=== PATIENT | male | born 1990 | race Caucasian/White ===

== ENCOUNTER 2016-12-08 04:14 | Emergency (ER) | payer OTHER ==
[~2016-12-08] VITALS: Ht 172.7 cm; Wt 87.5 kg
[2016-12-08 04:19] VITALS: Ht 172.7 cm; Wt 87.5 kg
[2016-12-08] MEDS ORDERED: ONDANSETRON 4 MG INJ IV STA (04:34)
[2016-12-08] MEDS ORDERED: KETOROLAC 30 MG INJ IV STA (04:34)
[2016-12-08] MEDS ORDERED: SOD CHLORIDE 0.9% 1,000 ML IV STA (04:34)
--- NOTE | 2016-12-08 05:02 | ERD ---
ER Documentation Chief Complaint Date/Time DATE: 12/08/16 TIME: 05:00 Chief Complaint right flank pain x 10 minutes HPI 25-year-old male otherwise healthy comes emergency department with sudden onset of sharp right-sided flank pain that started about 30 minutes ago. Patient states that it woke him up out of sleep, he states is going to his groin. He has not tried anything for the pain. He denies fever, chills, nausea, vomiting. He denies hematuria. He denies UTI symptoms. ROS All systems reviewed and are negative except as per history of present illness. Medications Home Meds Active Scripts Docusate Sodium* (Colace*) 100 Mg Capsule, 100 MG PO TID, #30 CAP Prov:YAYA CHAPARRO PA-C 12/08/16 Hydrocodone/Acetaminophen ([place] 5-325 Tablet) 1 Each Tablet, 1 TAB PO Q6H Y for PAIN, #15 TAB Prov:YAYA CHAPARRO PA-C 12/08/16 Tamsulosin Hcl* (Flomax*) 0.4 Mg Cap.er.24h, 0.4 MG PO BID, #30 CAP Prov:YAYA CHAPARRO PA-C 12/08/16 Ibuprofen* (Motrin*) 600 Mg Tab, 600 MG PO Q6, #30 TAB Prov:YAYA CHAPARRO PA-C 12/08/16 Allergies Allergies: Coded Allergies: No Known Drug Allergies (Verified Allergy, Unknown, 12/08/16) PMhx/Soc Medical and Surgical Hx: pt denies Medical Hx, pt denies Surgical Hx History of Surgery: No Anesthesia Reaction: No Hx Neurological Disorder: No Hx Respiratory Disorders: No Hx Cardiac Disorders: No Hx Psychiatric Problems: No Hx Miscellaneous Medical Probl: No Hx Alcohol Use: No Hx Substance Use: No Hx Tobacco Use: No Smoking Status: Never smoker Physical Exam Vitals Vital Signs Date Time Temp Pulse Resp B/P Pulse Ox O2 Delivery O2 Flow Rate FiO2 12/08/16 04:19 97.8 94 20 142/83 97 Physical Exam General: Well-developed, well-nourished. The patient appears in no acute distress. HEENT: Head is normocephalic, atraumatic. No scleral icterus. Neck: Supple. Nontender. Lungs: Clear to auscultation. Normal air movement. Heart: Regular rate and rhythm. S1 and S2 are normal. No murmurs, gallops, or rubs. Abdomen: Soft, nontender, nondistended. Bowel sounds are normoactive. No CVA tenderness. Extremities: No clubbing or cyanosis. Normal pulses. Moving extremities x 4. No weakness. Neurologic: Alert and oriented 3. No focal deficits. Skin: Normal turgor. No rash or lesions. Result Diagram: 12/08/16 0455 12/08/16 0455 Results 24 hrs Laboratory Tests Test 12/08/16 04:55 White Blood Count 10.710^3/ul Red Blood Count 4.5710^6/ul Hemoglobin 14.2g/dl Hematocrit 41.1% Mean Corpuscular Volume 89.9fl Mean Corpuscular Hemoglobin 31.1pg Mean Corpuscular Hemoglobin Concent 34.5g/dl Red Cell Distribution Width 12.4% Platelet Count 64782^3/UL Mean Platelet Volume 10.6fl Neutrophils % 45.2% Lymphocytes % 44.5% Monocytes % 8.1% Eosinophils % 1.4% Basophils % 0.3% Nucleated Red Blood Cells % 0.0/100WBC Neutrophils # 4.810^3/ul Lymphocytes # 4.810^3/ul Monocytes # 0.910^3/ul Eosinophils # 0.210^3/ul Basophils # 0.010^3/ul Nucleated Red Blood Cells # 0.010^3/ul Urine Color YELLOW Urine Clarity SLIGHTLY CLOUDY Urine pH 5.0 Urine Specific Brady 1.024 Urine Ketones NEGATIVEmg/dL Urine Nitrite NEGATIVEmg/dL Urine Bilirubin NEGATIVEmg/dL Urine Urobilinogen NEGATIVEmg/dL Urine Leukocyte Esterase NEGATIVELeu/ul Urine Microscopic RBC 1/HPF Urine Microscopic WBC 2/HPF Urine Bacteria FEW/HPF Urine Mucus FEW/HPF Urine Hemoglobin NEGATIVEmg/dL Urine Glucose NEGATIVEmg/dL Urine Total Protein NEGATIVEmg/dl Sodium Level 147mmol/L Potassium Level 3.9mmol/L Chloride Level 104mmol/L Carbon Dioxide Level 28mmol/L Anion Gap 19 Blood Urea Nitrogen 16mg/dl Creatinine 0.98mg/dl Glucose Level 96mg/dl Calcium Level 10.0mg/dl Total Bilirubin 0.3mg/dl Direct Bilirubin 0.00mg/dl Indirect Bilirubin 0.3mg/dl Aspartate Amino Transf (AST/SGOT) 31IU/L Alanine Aminotransferase (ALT/SGPT) 39IU/L Alkaline Phosphatase 89IU/L Total Protein 8.0g/dl Albumin 5.1g/dl Globulin 2.90g/dl Albumin/Globulin Ratio 1.75 Lipase 167U/L Current Medications Medications (Trade) Dose Ordered Sig/Cristiano Route PRN Reason Start Time Stop Time Status Last Admin Dose Admin Sodium Chloride (NS) 1,000 ml @ 1,000 mls/hr Q1H STAT IV 12/08/16 04:34 12/08/16 05:33 DC 12/08/16 04:51 Ondansetron HCl (Zofran Inj) 4 mg ONCE STAT IV 12/08/16 04:34 12/08/16 04:39 DC 12/08/16 04:50 Ketorolac Tromethamine (Toradol) 30 mg ONCE STAT IV 12/08/16 04:34 12/08/16 04:39 DC 12/08/16 04:50 DIAGNOSTIC IMAGING REPORT Patient: ALEXANDRA JON : 1990 Age: 25 Sex: M MR #: [id number] DOS: 12/08/16 0434 Ordering MD: YAYA CHAPARRO PA-C Location: [facility] Room/Bed: PROCEDURE: CT ABDOMEN/PELVIS WITHOUT CONTRAST CLINICAL INDICATION: 25-year-old male with right flank pain. TECHNIQUE: The study was performed utilizing a [employer]pe[employer] VCT 64-slice CT scanner. Direct axial sections were obtained through the abdomen and pelvis without the use of intravenous contrast material. Sagittal and coronal reformations were obtained. One or more of the following dose reduction techniques were utilized: automated exposure control, adjustment of the mA and/ or kV according to patient's size or use of iterative reconstruction technique. The images were reviewed on a PACS workstation. CTD/vol = 13.8 mGy; Total Exam DLP = 841.0 mGy-cm. COMPARISON: None. FINDINGS: The lung bases are unremarkable. There is no evidence for significant pleural effusion. The liver has a normal size and contour without focal areas of abnormal density. No intrahepatic nor extrahepatic biliary ductal dilatation is seen. The gallbladder demonstrates no wall thickening nor pericholecystic fluid. No biliary stones are evident. The pancreas is without areas of abnormal attenuation. The spleen is identified and has a normal size without abnormal density. The adrenal glands are unremarkable. There is mild right-sided hydroureteronephrosis with a punctate 1 mm obstructing calculus at the ureterovesicle junction region. The left kidney is without abnormal density, calculi or obstruction. The urinary bladder contains urine. There is mild retained stool within the ascending and transverse colon without obstruction. The appendix is diminutive and is without abnormal thickening or surrounding inflammatory reaction however there is a small punctate mid appendiceal 2 mm appendicolith. The prostate is not enlarged. There is no significant free fluid. The aortoiliac vessels are without aneurysmal dilatation. The osseous structures are intact. IMPRESSION: 1. Mild right-sided hydroureteronephrosis with a punctate 1 mm right ureterovesicle junction calculus. 2. Mild retained stool without obstruction. 3. Diminutive appendix containing a small 2 mm mid appendiceal appendicolith but without CT evidence for appendicitis. .Mac Perez MD, MD Date Time Electronically viewed and signed by .Mac Perez MD, on 12/08/2016 05:39 .M/ Procedures/MDM ED course: Patient an IV line established, blood and urine were obtained. He was given a fluid bolus of normal saline 1 L and Toradol 30 mg IV, Zofran 4 mg IV. Patient was also given Flomax 0.4 mg by mouth. The patient's abdominal pain was reexamined. Patient was sitting comfortably with improved pain. Patient was not in any distress. Rates his pain 0 out of 10. Medical decision making: This is a 24-year-old male comes a right-sided onset of flank pain that started about 30 minutes, comes in with a 1 mm obstructing kidney stone with hydronephrosis that is mild at the UVJ. No evidence of any septic kidney stones, no renal insufficiency or renal failure. He has normal white count, normal kidney function. CT abdomen and pelvis also showed incidental finding of an appendicolith, without any evidence of appendicitis. She does have mild constipation also seen on the CT scan. Results discussed with patient. He will be given prescriptions for pain medicine as well as for constipation, he was asked to recheck with his primary care doctor, symptoms do not improve that he may see a urologist outpatient. Departure Diagnosis: Primary Impression: Kidney stone Additional Impressions: Constipation Appendicolith Condition: Good YAYA CHAPARRO PA-C Dec 08, 2016 05:02
[2016-12-08 05:05] LABS: ADD SCAN DIFF NO
[2016-12-08 05:07] LABS: BASOPHILS % 0.3 % (0.0-2.0); EOSINOPHILS # 0.2 10^3/ul (0.0-0.5); EOSINOPHILS % 1.4 % (0.0-7.0); HEMATOCRIT 41.1 % (42.0-52.0); HEMOGLOBIN 14.2 g/dl (14.0-18.0); LYMPHOCYTES # 4.8 10^3/ul (0.8-2.9); LYMPHOCYTES % 44.5 % (15.0-51.0); MEAN CORPUSCULAR HEMOGLOBIN 31.1 pg (29.0-33.0); MEAN CORPUSCULAR HGB CONC 34.5 g/dl (32.0-37.0); MEAN CORPUSCULAR VOLUME 89.9 fl (82.0-101.0); MEAN PLATELET VOLUME 10.6 fl (7.4-10.4); MONOCYTE # 0.9 10^3/ul (0.3-0.9); MONOCYTES % 8.1 % (0.0-11.0); NEUTROPHIL # 4.8 10^3/ul (1.6-7.5); NEUTROPHILS % 45.2 % (39.0-77.0); PLATELET COUNT 330 10^3/UL (140-415); RED BLOOD COUNT 4.57 10^6/ul (4.70-6.10); RED CELL DISTRIBUTION WIDTH 12.4 % (11.5-14.5); WHITE BLOOD COUNT 10.7 10^3/ul (4.8-10.8)
[2016-12-08 05:24] LABS: ALBUMIN 5.1 g/dl (3.3-4.9); ALBUMIN/GLOBULIN RATIO 1.75; BILIRUBIN,INDIRECT 0.3 mg/dl (0-1.1); BILIRUBIN,TOTAL 0.3 mg/dl (0.2-1.3); CREATININE 0.98 mg/dl (0.61-1.24); POTASSIUM 3.9 mmol/L (3.5-5.1)
[2016-12-08 05:33] LABS: ADD UMIC NO; UR ASCORBIC ACID 40 mg/dL (NEGATIVE); UR BACTERIA FEW /HPF (NONE SEEN); UR BILIRUBIN (Dip) NEGATIVE (NEGATIVE); UR BLOOD (Dip) NEGATIVE (NEGATIVE); UR CLARITY SLIGHTLY CLOUDY (CLEAR); UR COLOR YELLOW (YELLOW); UR GLUCOSE (Dip) NEGATIVE (NEGATIVE); UR KETONES (Dip) NEGATIVE (NEGATIVE); UR LEUKOCYTE ESTERASE (Dip) NEGATIVE Leu/ul (NEGATIVE); UR MUCUS FEW /HPF (NONE SEEN); UR NITRITE (Dip) NEGATIVE (NEGATIVE); UR RBC 1 /HPF (0-5); UR SPECIFIC GRAVITY (Dip) 1.024 (1.003-1.030); UR TOTAL PROTEIN (Dip) NEGATIVE (NEGATIVE); UR UROBILINOGEN (Dip) NEGATIVE (NEGATIVE)
--- NOTE | 2016-12-08 05:40 | RADRPT ---
PROCEDURE: CT ABDOMEN/PELVIS WITHOUT CONTRAST CLINICAL INDICATION: 25-year-old male with right flank pain. TECHNIQUE: The study was performed utilizing a [employer] VCT 64-slice CT scanner. Direct axia l sections were obtained through the abdomen and pelvis without the use of intravenous contrast mate rial. Sagittal and coronal reformations were obtained. One or more of the following dose reduction t echniques were utilized: automated exposure control, adjustment of the mA and/or kV according to pat ient's size or use of iterative reconstruction technique. The images were reviewed on a PACS workst [employer]. CTD/vol = 13.8 mGy; Total Exam DLP = 841.0 mGy-cm. COMPARISON: None. FINDINGS: The lung bases are unremarkable. There is no evidence for significant pleural effusion. The liver has a normal size and contour without focal areas of abnormal density. No intrahepatic nor extrahepa tic biliary ductal dilatation is seen. The gallbladder demonstrates no wall thickening nor perichole cystic fluid. No biliary stones are evident. The pancreas is without areas of abnormal attenuation. The spleen is identified and has a normal size without abnormal density. The adrenal glands are unr emarkable. There is mild right-sided hydroureteronephrosis with a punctate 1 mm obstructing calculus at the ureterovesicle junction region. The left kidney is without abnormal density, calculi or obst ruction. The urinary bladder contains urine. There is mild retained stool within the ascending and t ransverse colon without obstruction. The appendix is diminutive and is without abnormal thickening or surrounding inflammatory reaction however there is a small punctate mid appendiceal 2 mm appendicolith. The prostate is not enlarged. There is no significant free fluid. The aortoiliac ve ssels are without aneurysmal dilatation. The osseous structures are intact. IMPRESSION: 1. Mild right-sided hydroureteronephrosis with a punctate 1 mm right ureterovesicle junction calcul us. 2. Mild retained stool without obstruction. 3. Diminutive appendix containing a small 2 mm mid appendiceal appendicolith but without CT evidenc e for appendicitis. .Mac Perez MD, Date Time Electronically viewed and signed by .Mac Perez MD, on 12/08/2016 05:39 .Liza
[2016-12-08] MEDS ORDERED: IBUP-1542 PO (05:49)
[2016-12-08] MEDS ORDERED: HYDR-906 PO (05:49)
[2016-12-08] MEDS ORDERED: DOCU-144 PO (05:49)
[2016-12-08] MEDS ORDERED: TAMS-14 PO (05:49)
[2016-12-08] MEDS ORDERED: TAMSULOSIN (SR) 0.4 MG CAP PO ONE (06:00)
== END 2016-12-08 06:08 | disposition home or self-care (01) ==
LOC: FTE 04:14
DX: N20.0 Calculus of kidney (principal); K59.00 Constipation, unspecified; K38.1 Appendicular concretions
CPT/HCPCS: 36415; 74176; 80053; 81001; 83690; 85025; 96374; 96375; J1885; J2405; J7030; Z7502; Z7610; 81003

== ENCOUNTER 2016-12-16 12:01 | Emergency (ER) | payer OTHER ==
[~2016-12-16] VITALS: Ht 172.7 cm; Wt 88.5 kg
[~2016-12-16 12:01] MED LIST: DOCU-144 PO; HYDR-906 PO; IBUP-1542 PO; TAMS-14 PO
[2016-12-16 12:04] VITALS: Ht 172.7 cm; Wt 88.5 kg
--- NOTE | 2016-12-16 12:16 | ERD ---
ER Documentation Chief Complaint Date/Time DATE: 12/16/16 TIME: 12:14 Chief Complaint pt was seen here in ER for kidnesy stones - for follow up HPI This is a 26-year-old male who states he is here to follow-up for kidney stones. He was seen here on December 08 and was diagnosed and told to follow with urology which he never did but this is why he states he came to the ER. He has no complaints at this time. Has no dysuria hematuria or urinary frequency. He has no flank pain. Has no fever, nausea, vomiting. ROS All systems reviewed and are negative except as per history of present illness. Medications Home Meds Active Scripts Docusate Sodium* (Colace*) 100 Mg Capsule, 100 MG PO TID, #30 CAP Prov:YAYA CHAPARRO PA-C 12/08/16 Hydrocodone/Acetaminophen ([place] 5-325 Tablet) 1 Each Tablet, 1 TAB PO Q6H Y for PAIN, #15 TAB Prov:YAYA CHAPARRO PA-C 12/08/16 Tamsulosin Hcl* (Flomax*) 0.4 Mg Cap.er.24h, 0.4 MG PO BID, #30 CAP Prov:YAYA CHAPARRO PA-C 12/08/16 Ibuprofen* (Motrin*) 600 Mg Tab, 600 MG PO Q6, #30 TAB Prov:YAYA CHAPARRO PA-C 12/08/16 Allergies Allergies: Coded Allergies: No Known Drug Allergies (Verified Allergy, Unknown, 12/16/16) PMhx/Soc Medical and Surgical Hx: pt denies Medical Hx, pt denies Surgical Hx History of Surgery: No Anesthesia Reaction: No Hx Neurological Disorder: No Hx Respiratory Disorders: No Hx Cardiac Disorders: No Hx Psychiatric Problems: No Hx Miscellaneous Medical Probl: No Hx Alcohol Use: No Hx Substance Use: No Hx Tobacco Use: No Smoking Status: Never smoker FmHx Family History: No diabetes Physical Exam Vitals Vital Signs Date Time Temp Pulse Resp B/P Pulse Ox O2 Delivery O2 Flow Rate FiO2 12/16/16 12:04 98.3 93 18 128/82 95 Physical Exam General: well developed, well nourished, alert, nontoxic, no distress Head: normocephalic, atraumatic Neck: Supple, nontender, no lymphadenopathy, no midline tenderness Respiratory: Clear to auscaultation bilaterally, speaks in full sentences, no use of accesory muscles or labored breathing, no rales, ronchi, or wheezing Cardiovascular: RRR, No murmurs GI: soft, non tender, non distended, negative murphys sign, negative mcburneys point tenderness, no cva tenderness bilaterally, no rebound or guarding Back: no midline tenderness, no step offs or bony abnormalities, sensation to light touch in tact Extremities: moving all extremities normally, normal gait, no edema Procedures/MDM 26-year-old states he is here to follow-up for kidney stones which was diagnosed here on December 08. He has no complaints at this time. His vital signs are all normal. He has no abdominal tenderness or CVA tenderness. He has no fever nausea or vomiting. He has no urinary symptoms. Recommended this patient follow up with her primary care doctor within 48 hours or return to the emergency room for any worsening of symptoms. However this time I do believe there is suitable for outpatient management. I answered all their questions and they agreed with the plan and were discharged home. Departure Diagnosis: Primary Impression: Normal exam Condition: Stable Patient Instructions: Medical Screening Exam, Nonurgent Additional Instructions: Call your primary care doctor TOMORROW for an appointment during the next 1-2 days.See the doctor sooner or return here if your condition worsens before your appointment time. SANDER PIERSON PA-C Dec 16, 2016 12:16
== END 2016-12-16 12:15 | disposition home or self-care (01) ==
LOC: FTE 12:01
DX: Z09 Encounter for follow-up examination after completed treatment for conditions other than malignant neoplasm (principal)
CPT/HCPCS: 99282